=== PATIENT | male | born 1985 | race Asian ===

== ENCOUNTER 2017-12-06 23:51 | Emergency (ER) | payer OTHER ==
[~2017-12-06] VITALS: Ht 167.6 cm; Wt 81.6 kg
--- NOTE | 2017-12-06 23:51 | NUR ---
PT BB FRIEND FROM HOME C/O "ASTHMA ATTACK TODAY BUT HAVE BEEN WHEEZING FOR 2 DAYS NOW BUT WORSE NOW" INSPIRATORY AND EXPIRATORY WHEEZING HEARD ON AUSCULTATION. PT IS TACHYCARDIC BUT DID USE INHALER BEFORE COMING TO ER. VSS OTHERWISE NAD A/OX4 ABLE TO MAKE NEEDS KNOWN. WILL CONTINUE TO MONITOR FOR ANY CHANGES DURING THE SHIFT.
--- NOTE | 2017-12-06 23:52 | NUR ---
ER MD HELMS AT BEDSIDE
--- NOTE | 2017-12-07 00:14 | NUR ---
RT IN ER TO ADMINISTER BREATHING TX
[2017-12-07] MEDS ORDERED: ALBUTEROL FS 2.5 MG/3 ML VIAL.NEB ONE ×2 (00:15→00:38)
[2017-12-07] MEDS ORDERED: predniSONE 20 MG TABLET PO ONE (00:30)
[2017-12-07] MEDS ORDERED: ALBUTEROL FS 2.5 MG/3 ML VIAL.NEB NEB ONE (00:30)
[2017-12-07] MEDS ORDERED: predniSONE 20 MG TABLET ONE (00:35)
--- NOTE | 2017-12-07 00:38 | NUR ---
AFTER BREATHING TX PT IS STILL WHEEZING PRIMARILY EXPIRATORY BUT SLIGHT INSPIRATORY WHEEZING WELL. ER MD HELMS MADE AWARE AND ORDERED A SECOND TREATMENT. RT IS MADE AWARE AND PULLING MEDICATION FOR ADMINISTRATION.
[2017-12-07 01:31] VITALS: BP 130/95
== END 2017-12-07 01:31 | disposition home or self-care (01) ==
LOC: ER 23:54
DX: J45.901 Unspecified asthma with (acute) exacerbation (principal)
CPT/HCPCS: A4606; Z7610

== ENCOUNTER 2018-06-20 19:40 | Emergency (ER) | payer OTHER ==
[~2018-06-20] VITALS: Ht 167.6 cm; Wt 83.0 kg
[2018-06-20 19:49] VITALS: BP 148/94
== END 2018-06-20 20:23 | disposition home or self-care (01) ==
LOC: ER 19:45
DX: J01.90 Acute sinusitis, unspecified (principal); B96.89 Other specified bacterial agents as the cause of diseases classified elsewhere; J45.909 Unspecified asthma, uncomplicated